=== PATIENT | female | born 1975 | race Caucasian/White ===

== ENCOUNTER 2022-03-20 18:22 | Emergency (ER) | payer MEDICAID ==
[~2022-03-20] VITALS: Ht 165.1 cm; Wt 80.7 kg
--- NOTE | 2022-03-20 18:22 | NUR ---
[facility] ALS TO ER BED 9
[2022-03-20 18:27] VITALS: BP 198/134
--- NOTE | 2022-03-20 19:30 | NUR ---
RECEIVED PT AWAKE AND ALERT. C/O NECK PAIN AND SAYS "I'M STARTING TO GET A HEADACHE". C-COLLAR IS IN PLACE
[2022-03-20] MEDS ORDERED: MORPHINE SULFATE 4 MG/ML SYR IM ONE (19:40)
--- NOTE | 2022-03-20 19:49 | NUR ---
PT TAKEN TO RADIOLOGY VIA [facility]
--- NOTE | 2022-03-20 20:40 | NUR ---
C/O PAIN, MEDICATED ORDERED
[2022-03-20] MEDS ORDERED: LABETALOL 100 MG/20 ML VIAL IVP ONE (23:30)
[2022-03-20] MEDS ORDERED: LABETALOL 20 MG/4 ML VIAL IVP ONE (23:38)
[2022-03-21 02:05] VITALS: BP 166/126
--- NOTE | 2022-03-21 02:05 | NUR ---
Patient discharged with v/s stable. Written and verbal after care instructions given and explained. Patient verbalized understanding. Ambulatory with steady gait. All questions addressed prior to discharge. Advised to follow up with PMD.
== END 2022-03-21 02:05 | disposition home or self-care (01) ==
LOC: MED 18:22
DX: S40.011A Contusion of right shoulder, initial encounter (principal); S10.93XA Contusion of unspecified part of neck, initial encounter; S20.219A Contusion of unspecified front wall of thorax, initial encounter; V43.52XA Car driver injured in collision with other type car in traffic accident, initial encounter; Y93.89 Activity, other specified; Y92.410 Unspecified street and highway as the place of occurrence of the external cause; Y99.8 Other external cause status
CPT/HCPCS: 71045; 72040; 73030; 93005; 96372; 96374; 99284; J2270; J3490